=== PATIENT | female | born 1960 | race American Indian/Alaskan Native ===

== ENCOUNTER 2017-09-09 20:04 | Emergency (ER) | payer SELFPAY ==
[2017-09-09] MEDS ORDERED: TYLENOL ONE (21:45)
[2017-09-09] MEDS ORDERED: TYLENOL PO ONE (21:47)
[2017-09-09 22:27] LABS: Hematocrit 41.9 % (30.3-42.9); Hemoglobin 13.6 gm/dl (10.1-14.3); Mean Corpuscular HGB Conc 32 % (30-34); Mean Corpuscular Hemoglobin 27 pg (28-32); Mean Corpuscular Volume 84 fl (79-97); Platelet Count 206 K/mm3 (140-440); Red Blood Count 5.01 M/mm3 (3.65-5.03); Red Cell Distribution Width 14.5 % (13.2-15.2)
[2017-09-09 22:32] LABS: BUN/Creatinine Ratio 18; Blood Urea Nitrogen 14 mg/dL (7-17); Calcium 8.7 mg/dL (8.4-10.2); Hemolysis Index 0
--- NOTE | 2017-09-09 23:04 | XRay Report ---
FINAL REPORT EXAM: XR CHEST ROUTINE 2V HISTORY: fever,cough TECHNIQUE: Two view chest PA and lateral PRIORS: None. FINDINGS: Cardiac and mediastinal contours are unremarkable. No focal pulmonary infiltrate is identified. No pleural fluid collection seen. Pulmonary vasculature is unremarkable. IMPRESSION: Negative two-view chest
--- NOTE | 2017-09-10 18:33 | Emergency Department Report ---
- General Chief Complaint: Fever Stated Complaint: COLD SX, N/V Time Seen by Provider: 09/10/17 18:23 Source: patient Mode of arrival: Ambulatory Limitations: No Limitations - History of Present Illness Initial Comments: This is a 56-year-old female with a past medical history significant for hypertension and CHF who was in her normal state of health until about 3 days ago when she began to have a cough. She then felt weak and had a fever as well. She denies any nausea vomiting diarrhea or chest pain. She states that her godson tested positive for influenza and was treated with liquid Tamiflu. She feels that she may have. At triage her temperature was 102.5. MD Complaint: fever, cough, rhinorrhea, nasal congestion -: Gradual Severity: moderate Consistency: constant Improves With: nothing Worsens With: nothing Context: sick contacts (god son was diagnosed with influenza) Associated Symptoms: fever, chills, myalgias, rhinorrhea, nasal congestion Treatments Prior to Arrival: none - Related Data Previous Rx's Medication Instructions Recorded Last Taken Type Furosemide [Lasix TAB] 40 mg PO QDAY #30 tablet 11/16/15 Unknown Rx ALBUTEROL Inhaler [ProAir HFA 2 puff IH QID PRN #1 inhalation 09/10/17 Unknown Rx Inhaler] Hycodan Cough Syrup 5 ml PO BID PRN #150 ml 09/10/17 Unknown Rx Oseltamivir [Tamiflu] 75 mg PO BID #10 cap 09/10/17 Unknown Rx Allergies Allergy/AdvReac Type Severity Reaction Status Date / Time No Known Allergies Allergy Unverified 11/16/15 12:15 ED Review of Systems ROS: Stated complaint: COLD SX, N/V Other details as noted in HPI Constitutional: chills, fever, malaise, weakness Eyes: as per HPI. denies: eye pain, eye discharge, vision change ENT: as per HPI. denies: ear pain, throat pain Respiratory: no symptoms reported, cough. denies: shortness of breath, wheezing Cardiovascular: as per HPI. denies: chest pain, palpitations Endocrine: no symptoms reported Gastrointestinal: as per HPI, nausea. denies: abdominal pain, diarrhea Genitourinary: denies: urgency, dysuria, discharge Musculoskeletal: as per HPI. denies: back pain, joint swelling, arthralgia Skin: as per HPI. denies: rash, lesions Neurological: denies: headache, weakness, paresthesias Psychiatric: denies: anxiety, depression Hematological/Lymphatic: denies: easy bleeding, easy bruising ED Past Medical Hx - Past Medical History Hx Hypertension: Yes Hx Congestive Heart Failure: Yes - Social History Smoking Status: Unknown if ever smoked Substance Use Type: None - Medications Home Medications: Home Medications Medication Instructions Recorded Confirmed Last Taken Type Furosemide [Lasix TAB] 40 mg PO QDAY #30 tablet 11/16/15 Unknown Rx ALBUTEROL Inhaler [ProAir HFA 2 puff IH QID PRN #1 inhalation 09/10/17 Unknown Rx Inhaler] Hycodan Cough Syrup 5 ml PO BID PRN #150 ml 09/10/17 Unknown Rx Oseltamivir [Tamiflu] 75 mg PO BID #10 cap 09/10/17 Unknown Rx ED Physical Exam - General Limitations: No Limitations General appearance: alert, in no apparent distress - Head Head exam: Present: atraumatic - Eye Eye exam: Present: normal appearance, PERRL, EOMI - ENT ENT exam: Present: normal exam - Neck Neck exam: Present: normal inspection - Respiratory Respiratory exam: Present: normal lung sounds bilaterally, respiratory distress - Cardiovascular Cardiovascular Exam: Present: regular rate, normal rhythm - GI/Abdominal GI/Abdominal exam: Present: soft, normal bowel sounds - Extremities Exam Extremities exam: Present: normal inspection - Back Exam Back exam: Present: normal inspection, full ROM - Neurological Exam Neurological exam: Present: alert, oriented X3 - Psychiatric Psychiatric exam: Present: normal affect, normal mood - Skin Skin exam: Present: warm, dry, intact ED Course Vital Signs 09/09/17 09/09/17 21:40 21:48 Temperature 102.5 F H Pulse Rate 98 H Respiratory 18 18 Rate Blood Pressure 139/84 O2 Sat by Pulse 100 Oximetry - Reevaluation(s) Reevaluation #1: 09/10/17 18:42 At this time I'll go ahead and empirically treat for influenza since she did have a positive contact. Although her tests are negative today and her white count is not elevated and her chest x-ray is negative clinically I do feel that she needs to be treated for influenza at this time. Therefore we'll go ahead and give her some Vicodin milligrams of Tamiflu here in the emergency room, and I'll give her a prescription for Tamiflu for 5 days as well as Hycodan cough syrup and albuterol inhaler. She is to follow-up with her primary care doctor or return here if she has any other concerns or deterioration in her clinical condition. ED Medical Decision Making - Lab Data Result diagrams: 09/09/17 22:00 09/09/17 22:00 Critical care attestation.: If time is entered above; I have spent that time in minutes in the direct care of this critically ill patient, excluding procedure time. ED Disposition Clinical Impression: Influenza Disposition: DC- TO HOME OR SELFCARE Is pt being admited?: No Does the pt Need Aspirin: No Condition: Stable Instructions: Influenza (ED) Additional Instructions: Last, drink plenty of fluids, follow up with her primary care doctor, return as needed, call 911 if you continue having a life-threatening emergency. Take medications as prescribed. Prescriptions: ALBUTEROL Inhaler [ProAir HFA Inhaler] 2 puff IH QID PRN #1 inhalation PRN Reason: Shortness Of Breath Hycodan Cough Syrup 5 ml PO BID PRN #150 ml PRN Reason: Cough Oseltamivir [Tamiflu] 75 mg PO BID #10 cap Referrals: LARS WYLIE MD [Primary Care Provider] - 3-5 Days
[2017-09-10 19:42] VITALS: BP 111/73
== END 2017-09-10 19:41 | disposition home or self-care (01) ==
LOC: ED 20:04
DX: J11.1 Influenza due to unidentified influenza virus with other respiratory manifestations (principal); I11.0 Hypertensive heart disease with heart failure; I50.9 Heart failure, unspecified
CPT/HCPCS: 36415; 71046; 80048; 83880; 85027; 87400; 99284

== ENCOUNTER 2018-01-02 19:11 | Inpatient (IN) | payer OTHER ==
[2018-01-02] MEDS ORDERED: NACL 0.9% 500 ML 500 ML IV ONE (20:22)
[2018-01-02] MEDS ORDERED: TYLENOL PO STA (20:23)
[2018-01-02 20:47] LABS: Basophils # (Auto) 0.1 K/mm3 (0.0-0.1); Basophils % (Auto) 0.8 % (0.0-1.8); Hematocrit 40.6 % (30.3-42.9); Hemoglobin 13.5 gm/dl (10.1-14.3); Lymphocytes # (Auto) 1.3 K/mm3 (1.2-5.4); Lymphocytes % (Auto) 19.8 % (13.4-35.0); Mean Corpuscular HGB Conc 33 % (30-34); Mean Corpuscular Hemoglobin 27 pg (28-32); Mean Corpuscular Volume 82 fl (79-97); Monocytes # (Auto) 0.4 K/mm3 (0.0-0.8); Monocytes % (Auto) 6.7 % (0.0-7.3); Red Blood Count 4.95 M/mm3 (3.65-5.03); Red Cell Distribution Width 14.9 % (13.2-15.2)
[2018-01-02 20:49] LABS: Platelet Count 198 K/mm3 (140-440)
[2018-01-02 21:01] LABS: INR 1.07 (0.87-1.13)
[2018-01-02 21:19] LABS: Alanine Aminotransferase 16 units/L (7-56); Albumin 3.7 g/dL (3.9-5); BUN/Creatinine Ratio 19; Blood Urea Nitrogen 13 mg/dL (7-17); Calcium 9.1 mg/dL (8.4-10.2); Hemolysis Index 27
--- NOTE | 2018-01-02 22:02 | XRay Report ---
FINAL REPORT PROCEDURE: XR CHEST 1V AP TECHNIQUE: Chest radiograph anteroposterior view. CPT 33882 HISTORY: possible Sepsis COMPARISON: September 09, 2017 FINDINGS: Heart: Moderate enlargement. Mediastinum/Vessels: Normal. Lungs/Pleural space: Right perihilar increased density.. Bony thorax: No acute osseous abnormality. Life support devices: None. IMPRESSION: Right perihilar infiltrate or edema. Cardiac enlargement..
[2018-01-03 01:50] LABS: Bacteria,Urine 4+ /HPF (Negative); Bilirubin,Urine NEG (Negative); Blood,Urine SM (Negative); Color,Urine Yellow (Yellow); Mucus,Urine FEW /HPF
[2018-01-03 01:57] LABS: WBC,Urine > 182.0 /HPF (0.0-6.0)
[2018-01-03] MEDS ORDERED: DUONEB *Not for PRN Use IH ONE (03:54)
[2018-01-03] MEDS ORDERED: LASIX IV ONE (05:44)
[2018-01-03] MEDS ORDERED: ROCEPHIN/NS 1 GM/50 ML 1 GM/50 ML BAG IV ONE (05:44)
[2018-01-03] MEDS ORDERED: NITROMIST TL PRN (05:44)
--- NOTE | 2018-01-03 05:50 | Emergency Department Report ---
ED General Adult HPI - General Chief complaint: Fever Stated complaint: VOMITING,COUGH Time Seen by Provider: 01/03/18 03:53 Source: patient Mode of arrival: Ambulatory Limitations: No Limitations - History of Present Illness Initial comments: Shortness of breath increased work of breathing possible pneumonia history of CHF out of her Lasix denies chest pain here for evaluation of possible fever shortness of breath possible pneumonia and CHF out of her Lasix -: Gradual, hour(s), days(s) Radiation: non-radiation Severity scale (0 -10): 6 Consistency: intermittent Associated Symptoms: cough, diaphoresis, fever/chills, malaise, shortness of breath. denies: confusion, chest pain, headaches, loss of appetite, syncope - Related Data Home Medications Medication Instructions Recorded Confirmed Last Taken No Known Home Medications [No 01/03/18 01/03/18 Unknown Reported Home Medications] Allergies Allergy/AdvReac Type Severity Reaction Status Date / Time erythromycin base Allergy Vomiting Verified 01/02/18 20:15 ED Review of Systems ROS: Stated complaint: VOMITING,COUGH Other details as noted in HPI Comment: All other systems reviewed and negative Constitutional: fever, malaise ENT: denies: dental pain, hearing loss, epistaxis Respiratory: cough, orthopnea, shortness of breath Cardiovascular: dyspnea on exertion, orthopnea, edema. denies: chest pain, palpitations, syncope Endocrine: denies: excessive sweating, flushing Gastrointestinal: denies: abdominal pain, nausea, vomiting, diarrhea, constipation, hematemesis, melena, hematochezia Neurological: denies: numbness, paresthesias, confusion, abnormal gait, vertigo Psychiatric: denies: auditory hallucinations, visual hallucinations, homicidal thoughts, suicidal thoughts ED Past Medical Hx - Past Medical History Previous Medical History?: Yes Hx Hypertension: Yes Hx Congestive Heart Failure: Yes - Surgical History Past Surgical History?: No - Social History Smoking Status: Never Smoker - Medications Home Medications: Home Medications Medication Instructions Recorded Confirmed Last Taken Type No Known Home Medications [No 01/03/18 01/03/18 Unknown History Reported Home Medications] ED Physical Exam - General Limitations: No Limitations General appearance: alert, anxious, in distress, other ([id number] respiratory distress respirations of 40 temperature is 98.2 she is nontoxic) - Head Head exam: Present: atraumatic, normocephalic - Eye Eye exam: Present: PERRL, EOMI - ENT ENT exam: Present: normal exam, normal orophraynx - Neck Neck exam: Present: normal inspection. Absent: tenderness, meningismus - Respiratory Respiratory exam: Present: respiratory distress, wheezes, rales, rhonchi, accessory muscle use, other ([id number] respiratory distress temp was 102.7 at triage nurse repeated it now is 98.2). Absent: stridor - Cardiovascular Cardiovascular Exam: Present: tachycardia, normal heart sounds - GI/Abdominal GI/Abdominal exam: Present: soft. Absent: tenderness, guarding, rebound, rigid , mass, pulsatile mass - Extremities Exam Extremities exam: Present: normal capillary refill. Absent: calf tenderness - Back Exam Back exam: Present: normal inspection. Absent: CVA tenderness (R), CVA tenderness (L) - Neurological Exam Neurological exam: Present: alert, oriented X3, CN II-XII intact. Absent: motor sensory deficit - Psychiatric Psychiatric exam: Present: anxious - Skin Skin exam: Absent: petechiae ED Course Vital Signs 01/02/18 01/02/18 01/02/18 19:38 20:20 20:38 Temperature 102.7 F H 102.7 F H Pulse Rate 109 H 110 H Pulse Rate [ Bilateral Lower Lobe] Respiratory 18 18 20 Rate Respiratory Rate [Bilateral Lower Lobe] Blood Pressure 149/97 149/97 Blood Pressure [Right] O2 Sat by Pulse 96 96 Oximetry 01/03/18 01/03/18 01/03/18 01:14 01:23 01:30 Temperature 98.0 F Pulse Rate 94 H 89 Pulse Rate [ Bilateral Lower Lobe] Respiratory 18 36 H Rate Respiratory Rate [Bilateral Lower Lobe] Blood Pressure 132/90 Blood Pressure 131/84 [Right] O2 Sat by Pulse 95 96 96 Oximetry 01/03/18 01/03/18 01/03/18 02:00 02:30 03:00 Temperature Pulse Rate 97 H 101 H 105 H Pulse Rate [ Bilateral Lower Lobe] Respiratory 35 H 29 H 32 H Rate Respiratory Rate [Bilateral Lower Lobe] Blood Pressure 150/96 124/86 154/108 Blood Pressure [Right] O2 Sat by Pulse 94 92 Oximetry 01/03/18 01/03/18 01/03/18 03:30 04:00 04:29 Temperature Pulse Rate 107 H 100 H Pulse Rate [ 104 H Bilateral Lower Lobe] Respiratory 35 H 28 H Rate Respiratory 32 H Rate [Bilateral Lower Lobe] Blood Pressure 141/92 139/100 Blood Pressure [Right] O2 Sat by Pulse 89 97 Oximetry 01/03/18 01/03/18 01/03/18 04:30 04:35 05:00 Temperature Pulse Rate 102 H 102 H Pulse Rate [ 102 H Bilateral Lower Lobe] Respiratory 31 H 28 H Rate Respiratory 24 Rate [Bilateral Lower Lobe] Blood Pressure 142/100 143/94 Blood Pressure [Right] O2 Sat by Pulse 93 93 Oximetry 01/03/18 05:30 Temperature Pulse Rate 99 H Pulse Rate [ Bilateral Lower Lobe] Respiratory 33 H Rate Respiratory Rate [Bilateral Lower Lobe] Blood Pressure 149/93 Blood Pressure [Right] O2 Sat by Pulse 90 Oximetry ED Medical Decision Making - Lab Data Result diagrams: 01/02/18 20:27 01/02/18 20:27 - EKG Data -: EKG Interpreted by Me - EKG Data When compared to previous EKG there are: previous EKG unavailable Interpretation: nonspecific ST-T wave michael, other (sinus tachycardia rate of 1: [address] change possible old anterior wall DC with LVH) - Radiology Data Radiology results: report reviewed - Medical Decision Making She did receive Lasix and nitroglycerin she does appear to have CHF acute exacerbation with possible pneumonia as well, blood cultures were obtained she was treated as a cold sepsis on arrival antibiotics were ordered lactic acid is not elevated she was discussed with Dr. Davis of the hospitalist service for further evaluation of shortness of breath hypoxia lung infiltrate history of CHF and elevated BMP with respiratory distress Critical care attestation.: If time is entered above; I have spent that time in minutes in the direct care of this critically ill patient, excluding procedure time. ED Disposition Clinical Impression: Hypoxia, COPD (chronic obstructive pulmonary disease), Pneumonia, CHF ( congestive heart failure) Disposition: OP ADMIT IP TO THIS HOSP Is pt being admited?: Yes Condition: Stable Instructions: Chronic Obstructive Pulmonary Disease (ED), Bacterial Pneumonia ( ED) Referrals: PRIMARY CARE, [Primary Care Provider] - 3-5 Days Time of Disposition: 05:57
[2018-01-03] MEDS ORDERED: LEVAQUIN 750MG/150ML 750 MG/150 ML BAG IV ONE (05:56)
[2018-01-03] MEDS ORDERED: cefTRIAXone 1 GM in NACL 0.9% 20 ML IV ONE (06:00)
[2018-01-03] MEDS ORDERED: ZOFRAN IV PRN (06:56)
[2018-01-03] MEDS ORDERED: TYLENOL PO PRN (06:56)
--- NOTE | 2018-01-03 09:38 | History and Physical Report ---
History of Present Illness Date of examination: 01/03/18 Date of admission: 01/03/18 06:55 Chief complaint: cough shortness of breath and vomiting - 2 days duration History of present illness: Patient is a 57 y/o lady who had a history of CHF and HTN but has not followed up with his PCP for over a year b/c of she lost her insurance started having cough with shortness of breath for the past 2 days. Had blood in the sutum initially. Vomited 2-3s. No hematemesis. Vomitus was yellowish in colour. Had fever and chills but has resolved. Had orthopnea but no PND. Denies and pedal edma. Present to the Ed on account of these worsening symptoms. BNP was found to be 2267 and CXR showed cardiomegaly as well of right infiltrate. Admissions was therefore requested for further management. Past History Past Medical History: heart failure, hypertension Medications and Allergies Allergies Allergy/AdvReac Type Severity Reaction Status Date / Time erythromycin base AdvReac Vomiting Verified 01/03/18 11:02 Home Medications Medication Instructions Recorded Confirmed Last Taken Type No Known Home Medications [No 01/03/18 01/03/18 Unknown History Reported Home Medications] Active Meds: Active Medications Acetaminophen (Tylenol) 650 mg PO Q4H PRN PRN Reason: Non Cardiac Pain or Temp>100.5 Aspirin (Baby Aspirin) 81 mg PO QDAY TANO Carvedilol (Coreg) 6.25 mg PO BID TANO Enoxaparin Sodium (Lovenox) 40 mg SUB-Q QDAY@2200 TANO Furosemide (Lasix) 40 mg PO QDAY TANO Azithromycin 500 mg/ Sodium (Chloride) 250 mls @ 250 mls/hr IV Q24HR TANO; Protocol Ceftriaxone Sodium (Rocephin/Ns 1 Gm/50 Ml) 1 gm in 50 mls @ 100 mls/hr IV Q24HR TANO; Protocol Dextrose/Sodium Chloride (D5/0.45ns) 1,000 mls @ 75 mls/hr IV DIRECT TANO Lisinopril (Zestril) 10 mg PO QDAY TANO Nitroglycerin (Nitromist) 1 spray TL Q5M PRN PRN Reason: Chest Pain Ondansetron HCl (Zofran) 4 mg IV Q4H PRN PRN Reason: N/V IF NPO AND NO IV ACCESS Review of Systems Constitutional: fever, chills, anorexia, no weight gain Ears, nose, mouth and throat: no ear pain, no ear discharge, no tinnitis Breasts: deferred Cardiovascular: orthopnea, shortness of breath, no chest pain, no palpitations, no edema, no syncope Respiratory: cough, cough with sputum, hemoptysis Gastrointestinal: nausea, vomiting, no abdominal pain, no diarrhea, no constipation, no change in bowel habits, no hematemesis Genitourinary Female: no flank pain, no menorrhagia, no dysuria, no urinary frequency, no urgency Musculoskeletal: no neck stiffness, no neck pain, no shooting arm pain, no arm numbness/tingling Integumentary: no rash, no pruritis, no redness Neurological: no head injury, no transient paralysis Exam - Constitutional Vitals: Temp Pulse Resp BP Pulse Ox 97.6 F 63 20 121/49 94 01/03/18 08:43 01/03/18 08:43 01/03/18 08:43 01/03/18 08:43 01/03/18 08:43 General appearance: Present: mild distress, well-nourished - EENT Eyes: Present: PERRL ENT: hearing intact, clear oral mucosa - Neck Neck: Present: supple, normal ROM - Respiratory Respiratory effort: normal Respiratory: bilateral: diminished, rales - Cardiovascular Heart Sounds: Present: S1 & S2. Absent: rub, click - Extremities Extremities: pulses symmetrical, No edema Peripheral Pulses: within normal limits - Abdominal General gastrointestinal: Present: soft, non-tender, non-distended, normal bowel sounds - Integumentary Integumentary: Present: clear, warm, dry - Musculoskeletal Musculoskeletal: gait normal, strength equal bilaterally - Psychiatric Psychiatric: appropriate mood/affect, intact judgment & insight - Neurologic Neurologic: CNII-XII intact, moves all extremities Results - Labs CBC & Chem 7: 01/02/18 20:27 01/02/18 20:27 Labs: Abnormal lab results 01/02/18 01/02/18 01/02/18 Range/Units 20:27 20:27 20:27 MCH 27 L (28-32) pg Seg Neutrophils % 72.7 H (40.0-70.0) % VBG pH 7.464 H (7.320-7.420) Sodium 135 L (137-145) mmol/L Chloride 97.5 L (98-107) mmol/L Glucose 154 H (65-100) mg/dL NT-Pro-B Natriuret Pep 2211 H (0-900) pg/mL Total Protein 9.3 H (6.3-8.2) g/dL Albumin 3.7 L (3.9-5) g/dL Urine WBC (Auto) (0.0-6.0) /HPF 01/02/18 01/03/18 Range/Units Unknown 04:31 MCH (28-32) pg Seg Neutrophils % (40.0-70.0) % VBG pH (7.320-7.420) Sodium (137-145) mmol/L Chloride (98-107) mmol/L Glucose (65-100) mg/dL NT-Pro-B Natriuret Pep 2267 H (0-900) pg/mL Total Protein (6.3-8.2) g/dL Albumin (3.9-5) g/dL Urine WBC (Auto) > 182.0 H (0.0-6.0) /HPF - Imaging and Cardiology Chest x-ray: report reviewed Assessment and Plan Assessment acute on chronic combined systolic and diastolic Heart failure Pulm. Hypertension Pneumonia UTI HTN Plan admit to Tele [facility] Is and Os, Daily edu, 2gm Na diet Cardiology consult Diurersis, ACEI BB, ECHO Blood XC and sputum Cx CTA b/c hemotysis Iv Cefriaxone and Azythromycin optimize BP control Urine Cx DVT PPx with lovenox
[2018-01-03] MEDS ORDERED: ROCEPHIN/NS 1 GM/50 ML 1 GM/50 ML BAG IV SCH (10:00)
[2018-01-03] MEDS ORDERED: D5/0.45NS 1,000 ML IV SCH (10:00)
[2018-01-03] MEDS: COREG PO SCH ×2 (10:10→23:00)
[2018-01-03] MEDS: LASIX PO SCH (10:10)
[2018-01-03] MEDS: BABY ASPIRIN PO SCH (10:10)
[2018-01-03] MEDS: ZESTRIL PO SCH (10:10)
[2018-01-03] MEDS: LOVENOX SUB-Q SCH (22:58)
[2018-01-03] MEDS: ROBITUSSIN PO PRN (23:58)
[2018-01-04] MEDS: LASIX PO SCH (05:42)
[2018-01-04] MEDS: ROBITUSSIN PO PRN ×2 (05:44→22:03)
[2018-01-04 05:49] LABS: Basophils # (Auto) 0.1 K/mm3 (0.0-0.1); Basophils % (Auto) 1.3 % (0.0-1.8); Eosinophils % (Auto) 0.6 % (0.0-4.3); Hematocrit 37.8 % (30.3-42.9); Hemoglobin 12.4 gm/dl (10.1-14.3); Lymphocytes % (Auto) 38.8 % (13.4-35.0); Mean Corpuscular HGB Conc 33 % (30-34); Mean Corpuscular Hemoglobin 27 pg (28-32); Mean Corpuscular Volume 82 fl (79-97); Monocytes # (Auto) 0.4 K/mm3 (0.0-0.8); Monocytes % (Auto) 8.3 % (0.0-7.3); Platelet Count 179 K/mm3 (140-440); Red Blood Count 4.59 M/mm3 (3.65-5.03)
[2018-01-04 05:58] LABS: INR 1.16 (0.87-1.13)
[2018-01-04 06:11] LABS: Alanine Aminotransferase 16 units/L (7-56); Albumin 3.3 g/dL (3.9-5); BUN/Creatinine Ratio 26; Blood Urea Nitrogen 18 mg/dL (7-17); Calcium 8.4 mg/dL (8.4-10.2); Hemolysis Index 0
[2018-01-04] MEDS: ZITHROMAX 500 MG in NACL 0.9% 250ML 250 ML IV SCH ×2 (08:01→09:49)
[2018-01-04] MEDS: ZESTRIL PO SCH (09:48)
[2018-01-04] MEDS: COREG PO SCH ×2 (09:48→21:56)
[2018-01-04] MEDS: BABY ASPIRIN PO SCH (09:48)
[2018-01-04] MEDS: cefTRIAXone 1 GM in NACL 0.9% 20 ML IV SCH (09:49)
--- NOTE | 2018-01-04 10:40 | Progress Note ---
Assessment and Plan Assessment acute on chronic combined systolic and diastolic Heart failure Pulm. Hypertension Pneumonia UTI HTN Plan Strick Is and Os, Daily weight, 2gm Na diet Echo showed 20-25% ejection fraction with restrictive diastolic filling Cardiology following Continue Diurersis, ACEI BB, Blood Cx and sputum Cx - no growth so far Srine Cx grew Gram neg. rods CTA b/c hemoptysis Iv Cefriaxone and Azythromycin optimize BP control Urine Cx DVT PPx with lovenox Subjective Date of service: 01/04/18 Principal diagnosis: combined systolic congestive heart failure, pulmonary hypertension, pneumon Interval history: Patient seen and examined. Still Having shortness of breath Objective - Exam Narrative Exam: Constitutional: Well-nourished well-developed. In no distress Head: Normocephalic atraumatic Eyes: Pupils are equal round and reactive to light Nose: No enlarged turbinates, no septal deviation. Mouth: Moist mucous membranes. Neck: Supple no thyromegaly. No bruit. No JVD Heart: Regular rate and rhythm, S1-S2 abnormal. No rubs murmurs or gallop Lungs: Decreased breath sounds bilaterally. Has basal crackles Abdomen: Soft, nontender. Bowel sound are present. Extremities: No edema no cyanosis and no clubbing. Neuro: Alert oriented Oriented x3. No focal sensory or motor deficit. Skin: No rashes no hyperemic spots Psychiatry: Euthymic. Calm. - Constitutional Vitals: Vital Signs - 12hr 01/03/18 01/04/18 01/04/18 23:00 00:42 05:20 Temperature 98.4 F 98.4 F Pulse Rate 79 78 77 Respiratory 20 22 Rate Blood Pressure 127/83 117/68 110/79 O2 Sat by Pulse 91 89 Oximetry 01/04/18 07:45 Temperature 98.1 F Pulse Rate 79 Respiratory 20 Rate Blood Pressure 108/72 O2 Sat by Pulse 92 Oximetry - Labs CBC & Chem 7: 01/04/18 05:30 01/04/18 05:30 Labs: Abnormal lab results 01/04/18 01/04/18 01/04/18 Range/Units 05:30 05:30 05:30 MCH 27 L (28-32) pg Lymph % (Auto) 38.8 H (13.4-35.0) % [place] % (Auto) 8.3 H (0.0-7.3) % PT 15.4 H (12.2-14.9) Sec. INR 1.16 H (0.87-1.13) Sodium 135 L (137-145) mmol/L Chloride 96.1 L (98-107) mmol/L BUN 18 H (7-17) mg/dL Glucose 163 H (65-100) mg/dL Albumin 3.3 L (3.9-5) g/dL
[2018-01-04] MEDS ORDERED: NACL 0.9% 250ML 250 ML ONE (11:35)
--- NOTE | 2018-01-04 11:54 | Consultation ---
History of Present Illness Consult date: 01/04/18 Requesting physician: MIGUEL INFANTE Consult reason: congestive heart failure History of present illness: The patient presented to the hospital with complaints of intermittent bloody material as well as hemoptysis. She claims that her content appears like phlegm with specks of blood. She denies chest pain or shortness of breath. There is no orthopnea. No fever or chills. Chest X-ray revealed pulmonary vascular congestion with probable right-sided infiltrate. Echocardiogram performed yesterday revealed an ejection fraction of 20-25%. There is a restrictive pattern of diastolic LV dysfunction. The right ventricle appears dilated with normal systolic function. RVSP = 77 mmHg. On the monitor this morning, she had a 7-beat run of nonsustained ventricular tachycardia. Past History Past Medical History: diabetes, heart failure, hypertension, hyperlipidemia Past Surgical History: No surgical history Social history: (with 2 children). denies: smoking, alcohol abuse Family history: denies: CAD Medications and Allergies Allergies Allergy/AdvReac Type Severity Reaction Status Date / Time erythromycin base AdvReac Vomiting Verified 01/03/18 11:02 Home Medications Medication Instructions Recorded Confirmed Last Taken Type No Known Home Medications [No 01/03/18 01/03/18 Unknown History Reported Home Medications] Active Meds: Active Medications Acetaminophen (Tylenol) 650 mg PO Q4H PRN PRN Reason: Non Cardiac Pain or Temp>100.5 Aspirin (Baby Aspirin) 81 mg PO QDAY [facility] Last Admin: 01/04/18 09:48 Dose: 81 mg Carvedilol (Coreg) 6.25 mg PO BID [facility] Last Admin: 01/04/18 09:48 Dose: 6.25 mg Enoxaparin Sodium (Lovenox) 40 mg SUB-Q QDAY@2200 [facility] Last Admin: 01/03/18 22:58 Dose: 40 mg Furosemide (Lasix) 40 mg PO DAILY@0600 [facility] Last Admin: 01/04/18 05:42 Dose: 40 mg Guaifenesin (Robitussin) 200 mg PO Q4H PRN PRN Reason: Cough Last Admin: 01/04/18 05:44 Dose: 200 mg Azithromycin 500 mg/ Sodium (Chloride) 250 mls @ 250 mls/hr IV Q24HR [facility]; Protocol Last Admin: 01/04/18 09:49 Dose: 250 mls/hr Dextrose/Sodium Chloride (D5/0.45ns) 1,000 mls @ 75 mls/hr IV DIRECT [facility] Ceftriaxone Sodium 1 gm/ (Sodium Chloride) 20 mls @ 2 mls/min IV Q24HR [facility] Last Admin: 01/04/18 09:49 Dose: 2 mls/min Lisinopril (Zestril) 10 mg PO QDAY [facility] Last Admin: 01/04/18 09:48 Dose: 10 mg Nitroglycerin (Nitromist) 1 spray TL Q5M PRN PRN Reason: Chest Pain Ondansetron HCl (Zofran) 4 mg IV Q4H PRN PRN Reason: N/V IF NPO AND NO IV ACCESS Review of Systems Constitutional: no fever, no chills Ears, nose, mouth and throat: no ear pain, no ear discharge, no sore throat Cardiovascular: no chest pain, no orthopnea, no palpitations, no shortness of breath, no dyspnea on exertion Respiratory: cough with sputum, hemoptysis, no shortness of breath Gastrointestinal: nausea, vomiting, hematemesis, no abdominal pain, no diarrhea , no constipation Genitourinary Female: no dysuria, no urinary frequency Rectal: no pain, no bleeding Musculoskeletal: no neck stiffness, no neck pain, no myalgias Integumentary: no rash, no pruritis Neurological: no weakness, no parathesias, no headaches Endocrine: no cold intolerance, no heat intolerance Hematologic/Lymphatic: no easy bruising, no easy bleeding Allergic/Immunologic: no urticaria, no wheezing Physical Examination Vital Signs Vital Signs 01/04/18 01/04/18 05:20 07:45 Temperature 98.4 F 98.1 F Pulse Rate 77 79 Respiratory 22 20 Rate Blood Pressure 110/79 108/72 O2 Sat by Pulse 89 92 Oximetry General appearance: no acute distress HEENT: Positive: EOMI, Mucus Membranes Moist Neck: Positive: neck supple, trachea midline Cardiac: Positive: Reg Rate and Rhythm, S1/S2 Lungs: Positive: clear to auscultation Neuro: Positive: Grossly Intact Abdomen: Positive: Soft, Active Bowel Sounds. Negative: Tender Skin: Positive: Clear. Negative: Rash Musculoskeletal: Normal Range of Motion Extremities: Present: normal. Absent: edema Results 01/04/18 05:30 05/23/18 05:30 Cardiac Enzymes 01/04/18 Range/Units 05:30 AST 33 (5-40) units/L Coagulation 01/04/18 Range/Units 05:30 PT 15.4 H (12.2-14.9) Sec. INR 1.16 H (0.87-1.13) CBC 01/04/18 Range/Units 05:30 WBC 5.2 (4.5-11.0) K/mm3 RBC 4.59 (3.65-5.03) M/mm3 Hgb 12.4 (10.1-14.3) gm/dl Hct 37.8 (30.3-42.9) % Plt Count 179 (140-440) K/mm3 Lymph # 2.0 (1.2-5.4) K/mm3 [place] # 0.4 (0.0-0.8) K/mm3 Eos # 0.0 (0.0-0.4) K/mm3 Baso # 0.1 (0.0-0.1) K/mm3 Comprehensive Metabolic Panel 01/04/18 Range/Units 05:30 Sodium 135 L (137-145) mmol/L Potassium 3.6 (3.6-5.0) mmol/L Chloride 96.1 L (98-107) mmol/L Carbon Dioxide 27 (22-30) mmol/L BUN 18 H (7-17) mg/dL Creatinine 0.7 (0.7-1.2) mg/dL Glucose 163 H (65-100) mg/dL Calcium 8.4 (8.4-10.2) mg/dL AST 33 (5-40) units/L ALT 16 (7-56) units/L Alkaline Phosphatase 102 (35-129) units/L Total Protein 8.0 (6.3-8.2) g/dL Albumin 3.3 L (3.9-5) g/dL - Imaging and Cardiology EKG: image reviewed EKG interpretations - Telemetry EKG Rhythm: Sinus Tachycardia - EKG Sinus rhythms and dysrhythmias: sinus tachycardia Ventricular dysrhythmias: non-sustained ventricular AV and intraventricular conduction: left anterior fascicular Myocardial infarction: septal [place] (old age or ind Assessment and Plan I agree with her current regimen. The findings on her cardiac tests so far are significantly out of proportion to her presenting symptoms. Obtain d-dimer. I have explained to her that she will benefit from left and right heart catheterization. - Patient Problems (1) Acute HFrEF (heart failure with reduced ejection fraction) Current Visit: Yes Status: Acute (2) Cardiomyopathy Current Visit: Yes Status: Acute (3) Nonsustained ventricular tachycardia Current Visit: Yes Status: Acute (4) Moderate to severe pulmonary hypertension Current Visit: Yes Status: Acute (5) Hematemesis Current Visit: Yes Status: Acute Qualifiers: Nausea presence: with nausea Qualified Code(s): K92.0 - Hematemesis (6) Hemoptysis Current Visit: Yes Status: Acute (7) Hypertension Current Visit: Yes Status: Chronic Qualifiers: Hypertension type: essential hypertension Qualified Code(s): I10 - Essential (primary) hypertension (8) Diabetes mellitus Current Visit: Yes Status: Chronic Qualifiers: Diabetes mellitus type: type 2
[2018-01-04] MEDS ORDERED: NACL 0.9% 250ML 250 ML IV ONE (12:26)
[2018-01-04] MEDS ORDERED: NACL 0.9% 500 ML 500 ML IV SCH (13:00)
[2018-01-04 14:11] LABS: Creatine Kinase MB 1.6 ng/mL (0.0-4.0)
--- NOTE | 2018-01-04 14:43 | Cat Scan Report ---
FINAL REPORT EXAM: CT ANGIO CHEST HISTORY: shortnessiof breath COMPARISON: Chest radiograph performed on 01/02/2018 TECHNIQUE: Multiple contiguous axial images were obtained from the thoracic inlet to the upper abdomen after administration of IV contrast. Reformatted sagittal and coronal images were available for review. FINDINGS: Medical devices: None. Thyroid: Normal. Lymph nodes: No significant mediastinal, hilar, or axillary lymphadenopathy. Vasculature: Normal caliber of the pulmonary artery. No filling defect to suggest pulmonary embolism. Normal caliber of the thoracic aorta. Conventional branching pattern of the aortic arch. Heart: Mild cardiomegaly. There is some reflux of contrast into the inferior vena cava and hepatic veins. Other mediastinal structures: Normal. Lung parenchyma: Peribronchovascular ground-glass opacities right greater than left. There are also peribronchovascular ground-glass nodules throughout both lungs. Airways: Patent. No bronchiectasis. Pleura: No pleural effusion or pneumothorax. Chest wall and spine: No suspicious osseous lesions. Upper Abdomen: Normal. IMPRESSION: Peribronchovascular ground-glass opacities and nodules, right slightly greater than the left. Along with findings of cardiomegaly and reflux of contrast into the hepatic veins and inferior vena cava, findings likely represent cardiogenic pulmonary edema. Recommend clinical correlation. Differential diagnosis includes hypersensitivity pneumonitis and drug reaction.
--- NOTE | 2018-01-04 18:46 | Event Note ---
Date: 01/04/18 Pt suddenly became lethargic this morning after iv Azithromycin per pt's nurse became lightly hypoxic. NS 250 mg bolus given with CTA of the chest ordered. Result of CTA showed ground glass appearance with cardiogenic edema and pneumonitis likely from drug reaction Will d/c Azithromycine and Commence Levaquin more so as UA showed Gram neg rods
[2018-01-04] MEDS: LOVENOX SUB-Q SCH (21:57)
[2018-01-05 05:46] LABS: Basophils % (Auto) 0.4 % (0.0-1.8); Eosinophils # (Auto) 0.1 K/mm3 (0.0-0.4); Eosinophils % (Auto) 1.2 % (0.0-4.3); Hematocrit 36.6 % (30.3-42.9); Hemoglobin 12.1 gm/dl (10.1-14.3); Lymphocytes # (Auto) 1.8 K/mm3 (1.2-5.4); Lymphocytes % (Auto) 32.9 % (13.4-35.0); Mean Corpuscular HGB Conc 33 % (30-34); Mean Corpuscular Hemoglobin 27 pg (28-32); Mean Corpuscular Volume 82 fl (79-97); Monocytes # (Auto) 0.5 K/mm3 (0.0-0.8); Monocytes % (Auto) 9.2 % (0.0-7.3); Platelet Count 181 K/mm3 (140-440); Red Blood Count 4.47 M/mm3 (3.65-5.03); Red Cell Distribution Width 14.6 % (13.2-15.2)
[2018-01-05] MEDS: LASIX PO SCH (05:48)
[2018-01-05 05:56] LABS: INR 1.05 (0.87-1.13)
[2018-01-05 06:51] LABS: Alanine Aminotransferase 16 units/L (7-56); Albumin 3.3 g/dL (3.9-5); BUN/Creatinine Ratio 27; Blood Urea Nitrogen 16 mg/dL (7-17); Calcium 8.2 mg/dL (8.4-10.2); Hemolysis Index 0
[2018-01-05] MEDS ORDERED: HALFPRIN EC PO ONE ×2 (07:59→08:02)
[2018-01-05] MEDS ORDERED: LASIX IV ONE (08:48)
[2018-01-05] MEDS ORDERED: TESSALON PERLES PO ONE (08:50)
[2018-01-05] MEDS ORDERED: HEPARIN 10,000 UNITS/10 ML ONE ×2 (08:53→08:55)
[2018-01-05] MEDS ORDERED: CALAN ONE (08:53)
[2018-01-05] MEDS ORDERED: HEPARIN/NS 5000 UNIT/500ML(CATH LAB) 1,000 ML IR ONE (08:53)
[2018-01-05] MEDS ORDERED: XYLOCAINE 2% INFILTRATI ONE ×2 (08:53→11:02)
[2018-01-05] MEDS ORDERED: LASIX ONE (08:54)
[2018-01-05] MEDS ORDERED: NITROGLYCERIN SYRINGE 3 ML ONE (08:54)
[2018-01-05] MEDS ORDERED: SUBLIMAZE ONE (08:55)
[2018-01-05] MEDS ORDERED: VERSED ONE (08:55)
[2018-01-05] MEDS ORDERED: DUONEB *Not for PRN Use IH ONE (09:05)
[2018-01-05] MEDS ORDERED: DUONEB *Not for PRN Use IH NR (09:06)
[2018-01-05] MEDS: ROBITUSSIN PO PRN (09:09)
--- NOTE | 2018-01-05 09:19 | Progress Note ---
Assessment and Plan Patient is a 57 y/o lady who had a history of CHF and HTN but has not followed up with his PCP for over a year b/c of she lost her insurance started having cough with shortness of breath for the past 2 days. Had blood in the sutum initially. Vomited 2-3s. No hematemesis. Vomitus was yellowish in colour. Had fever and chills but has resolved. Had orthopnea but no PND. Denies and pedal edma. Present to the Ed on account of these worsening symptoms. BNP was found to be 2267 and CXR showed cardiomegaly as well of right infiltrate. Admissions was therefore requested for further management. On 01/04, Pt suddenly became lethargic this morning after iv Azithromycin per pt' s nurse became lightly hypoxic. NS 250 mg bolus given with CTA of the chest ordered. Result of CTA showed ground glass appearance with cardiogenic edema and pneumonitis likely from drug reaction Will d/c Azithromycine and Commence Levaquin more so as UA showed E. coli Assessment Acute on chronic combined systolic and diastolic Heart failure Pulm. Hypertension Pneumonia UTI HTN Plan Strick Is and Os, Daily weight, 2gm Na diet Echo showed 20-25% ejection fraction with restrictive diastolic filling Cardiology following Continue Diurersis, ACEI BB, Blood Cx and sputum Cx - no growth so far Urine Cx E. coli CTA showed ground glass appearance with cardiogenic edema Iv Ceftriaxone continued, but d/c azithromycin because of possible drug reaction and commenced patient on IV Levaquin BP controlled Urine Cx showed E. coli DVT PPx with lovenox Cardiac cath done Subjective Date of service: 01/05/18 Principal diagnosis: combined systolic congestive heart failure, pulmonary hypertension, pneumon Interval history: Patient seen and examined. Still having shortness of breath. Rediscussed limiting fluid intake to < 1.5 L daily. Objective - Exam Narrative Exam: Constitutional: Well-nourished well-developed. In no distress Head: Normocephalic atraumatic Eyes: Pupils are equal round and reactive to light Nose: No enlarged turbinates, no septal deviation. Mouth: Moist mucous membranes. Neck: Supple no thyromegaly. No bruit. No JVD Heart: Regular rate and rhythm, S1-S2 abnormal. No rubs murmurs or gallop Lungs: Decreased breath sounds bilaterally. Has basal crackles. Abdomen: Soft, nontender. Bowel sound are present. Extremities: No edema no cyanosis and no clubbing. Neuro: Alert oriented Oriented x3. No focal sensory or motor deficit. Skin: No rashes no hyperemic spots Psychiatry: Euthymic. Calm. - Constitutional Vitals: Vital Signs - 12hr 01/04/18 01/05/18 01/05/18 21:56 00:05 00:27 Temperature Pulse Rate 59 L 88 Pulse Rate [ Bilateral Lower Lobe] Pulse Rate [ 70 Right Radial] Respiratory 18 Rate Respiratory Rate [Bilateral Lower Lobe] Blood Pressure 102/61 118/77 Blood Pressure [Right] O2 Sat by Pulse 93 Oximetry 01/05/18 01/05/18 01/05/18 00:46 04:21 05:23 Temperature 97.8 F 98.4 F Pulse Rate 88 73 72 Pulse Rate [ Bilateral Lower Lobe] Pulse Rate [ Right Radial] Respiratory 18 18 Rate Respiratory Rate [Bilateral Lower Lobe] Blood Pressure 110/73 Blood Pressure 118/77 110/73 [Right] O2 Sat by Pulse 92 93 95 Oximetry 01/05/18 01/05/18 01/05/18 07:42 08:04 08:12 Temperature 98.3 F 97.5 F L Pulse Rate 71 74 Pulse Rate [ Bilateral Lower Lobe] Pulse Rate [ Right Radial] Respiratory 20 18 Rate Respiratory Rate [Bilateral Lower Lobe] Blood Pressure 119/70 Blood Pressure 113/77 [Right] O2 Sat by Pulse 95 96 96 Oximetry 01/05/18 09:13 Temperature Pulse Rate Pulse Rate [ 13 L Bilateral Lower Lobe] Pulse Rate [ Right Radial] Respiratory Rate Respiratory 18 Rate [Bilateral Lower Lobe] Blood Pressure Blood Pressure [Right] O2 Sat by Pulse Oximetry - Labs CBC & Chem 7: 01/05/18 04:57 01/05/18 04:57 Labs: Abnormal lab results 01/04/18 01/05/18 01/05/18 Range/Units 13:02 04:57 04:57 MCH 27 L (28-32) pg [place] % (Auto) 9.2 H (0.0-7.3) % Chloride 96.9 L (98-107) mmol/L Creatinine 0.6 L (0.7-1.2) mg/dL Glucose 157 H (65-100) mg/dL Calcium 8.2 L (8.4-10.2) mg/dL Total Creatine Kinase 449 H (30-135) units/L Albumin 3.3 L (3.9-5) g/dL
[2018-01-05] MEDS ORDERED: ZITHROMAX PO SCH (10:00)
[2018-01-05] MEDS ORDERED: NACL 0.9% 500 ML 500 ML ONE (10:33)
[2018-01-05] MEDS ORDERED: HEPARIN 10,000 UNITS/10 ML 5,000 UNIT in NACL 0.9% 500 ML 500 ML IR ONE (10:45)
[2018-01-05] MEDS ORDERED: SUBLIMAZE IV ONE (10:55)
[2018-01-05] MEDS ORDERED: VERSED IV ONE (10:55)
[2018-01-05] MEDS ORDERED: NITROGLYCERIN SYRINGE UD ONE (11:04)
[2018-01-05] MEDS ORDERED: HEPARIN 10,000 UNITS/10 ML IV ONE (11:04)
[2018-01-05] MEDS ORDERED: CALAN IV ONE (11:04)
--- NOTE | 2018-01-05 11:31 | Progress Note ---
Assessment and Plan acute respiratory failure acute systolic heart failure pulm htn htn rec: add aldactone cont lasix, jerri and coreg and followup in clinic next week. discuss with pcp and patient. Subjective Date of service: 01/05/18 Principal diagnosis: combined systolic congestive heart failure, pulmonary hypertension, pneumon Interval history: pt having cough and able to ly flat Objective Vital Signs Temp Pulse Pulse Pulse Resp Resp BP 01/05/18 09:22 68 18 01/05/18 09:13 13 L 18 01/05/18 08:12 01/05/18 08:04 97.5 F L 74 18 01/05/18 07:42 98.3 F 71 20 119/70 01/05/18 05:23 98.4 F 72 18 01/05/18 04:21 73 110/73 01/05/18 00:46 97.8 F 88 18 01/05/18 00:27 70 18 01/05/18 00:05 88 118/77 01/04/18 21:56 59 L 102/61 01/04/18 20:35 70 01/04/18 19:57 97.6 F 59 L 20 01/04/18 19:50 01/04/18 19:21 61 102/61 01/04/18 15:26 98.2 F 64 20 101/60 01/04/18 12:51 01/04/18 12:03 66 92/63 BP Pulse Ox 01/05/18 09:22 01/05/18 09:13 01/05/18 08:12 96 01/05/18 08:04 113/77 96 01/05/18 07:42 95 01/05/18 05:23 110/73 95 01/05/18 04:21 93 01/05/18 00:46 118/77 92 01/05/18 00:27 01/05/18 00:05 93 01/04/18 21:56 01/04/18 20:35 01/04/18 19:57 102/61 96 01/04/18 19:50 97 01/04/18 19:21 92 01/04/18 15:26 92 01/04/18 12:51 96 01/04/18 12:03 86 - Physical Examination General: No Apparent Distress HEENT: Positive: EOMI, Mucus Membranes Moist Neck: Positive: neck supple, trachea midline Cardiac: Positive: Regular Rate Lungs: Positive: Decreased Breath Sounds Neuro: Positive: Grossly Intact Abdomen: Positive: Soft, Active Bowel Sounds. Negative: Tender Skin: Positive: Clear. Negative: Rash Musculoskeletal: Normal Range of Motion Extremities: Present: normal. Absent: edema - Labs and Meds Cardiac Enzymes 01/04/18 01/05/18 Range/Units 13:02 04:57 AST 28 (5-40) units/L CK-MB (CK-2) 1.6 (0.0-4.0) ng/mL Coagulation 01/05/18 Range/Units 04:57 PT 14.2 (12.2-14.9) Sec. INR 1.05 (0.87-1.13) CBC 01/05/18 Range/Units 04:57 WBC 5.4 (4.5-11.0) K/mm3 RBC 4.47 (3.65-5.03) M/mm3 Hgb 12.1 (10.1-14.3) gm/dl Hct 36.6 (30.3-42.9) % Plt Count 181 (140-440) K/mm3 Lymph # 1.8 (1.2-5.4) K/mm3 [place] # 0.5 (0.0-0.8) K/mm3 Eos # 0.1 (0.0-0.4) K/mm3 Baso # 0.0 (0.0-0.1) K/mm3 Comprehensive Metabolic Panel 01/05/18 Range/Units 04:57 Sodium 138 (137-145) mmol/L Potassium 3.6 (3.6-5.0) mmol/L Chloride 96.9 L (98-107) mmol/L Carbon Dioxide 25 (22-30) mmol/L BUN 16 (7-17) mg/dL Creatinine 0.6 L (0.7-1.2) mg/dL Glucose 157 H (65-100) mg/dL Calcium 8.2 L (8.4-10.2) mg/dL AST 28 (5-40) units/L ALT 16 (7-56) units/L Alkaline Phosphatase 101 (35-129) units/L Total Protein 8.0 (6.3-8.2) g/dL Albumin 3.3 L (3.9-5) g/dL - Imaging and Cardiology EKG: image reviewed Cardiac cath: report reviewed (pulm htn and normal coronaries and severe lv dsyfunction ) - Telemetry EKG Rhythm: Sinus Rhythm - EKG Sinus rhythms and dysrhythmias: sinus tachycardia Ventricular dysrhythmias: non-sustained ventricular AV and intraventricular conduction: left anterior fascicular Myocardial infarction: septal [place] (old age or ind
--- NOTE | 2018-01-05 15:09 | Consultation ---
History of Present Illness Consult date: 01/05/18 Requesting physician: MIGUEL INFANTE Reason for consult: hypoxemia History of present illness: 57 y/o female with severe systolic heart failure admitted with acute respiratory failure. Per patient and ED notes, ran out of lasix therapy. Was started on abx and per report, became acutely ill after administration of macrolide abx therapy. Unsure if the allergy listed above was just placed or not. Had a CTA angio that was negative for PE but showed diffuse ground glass opacities with worsening in the right upper lobe region. Pulmonary consulted for this. Past History Past Medical History: diabetes, heart failure, hypertension, hyperlipidemia Past Surgical History: No surgical history Social history: (with 2 children). denies: smoking, alcohol abuse Family history: denies: CAD Medications and Allergies Allergies Allergy/AdvReac Type Severity Reaction Status Date / Time erythromycin base AdvReac Vomiting Verified 01/03/18 11:02 Home Medications Medication Instructions Recorded Confirmed Last Taken Type No Known Home Medications [No 01/03/18 01/03/18 Unknown History Reported Home Medications] Active Meds: Active Medications Acetaminophen (Tylenol) 650 mg PO Q4H PRN PRN Reason: Non Cardiac Pain or Temp>100.5 Aspirin (Baby Aspirin) 81 mg PO QDAY [facility]S [facility] 234 BEDS AT [facility] Last Admin: 01/04/18 09:48 Dose: 81 mg Carvedilol (Coreg) 6.25 mg PO BID COUNTS [facility]CLUDE 234 BEDS AT [facility] Last Admin: 01/04/18 21:56 Dose: Not Given Enoxaparin Sodium (Lovenox) 40 mg SUB-Q QDAY@2200 COUNTS [facility]CLUDE 234 BEDS AT [facility] Last Admin: 01/04/18 21:57 Dose: 40 mg Furosemide (Lasix) 40 mg PO DAILY@0600 COUNTS INCLUDE 234 BEDS AT [facility] Last Admin: 01/05/18 05:48 Dose: Not Given Guaifenesin (Robitussin) 200 mg PO Q4H PRN PRN Reason: Cough Last Admin: 01/05/18 09:09 Dose: 200 mg Dextrose/Sodium Chloride (D5/0.45ns) 1,000 mls @ 75 mls/hr IV DIRECT COUNTS INCLUDE 234 BEDS AT THE [facility] Ceftriaxone Sodium 1 gm/ (Sodium Chloride) 20 mls @ 2 mls/min IV Q24HR COUNTS INCLUDE 234 BEDS AT THE [facility] Last Admin: 01/04/18 09:49 Dose: 2 mls/min Lisinopril (Zestril) 10 mg PO QDAY COUNTS INCLUDE 234 BEDS AT [facility] Last Admin: 01/04/18 09:48 Dose: 10 mg Nitroglycerin (Nitromist) 1 spray TL Q5M PRN PRN Reason: Chest Pain Ondansetron HCl (Zofran) 4 mg IV Q4H PRN PRN Reason: N/V IF NPO AND NO IV ACCESS Spironolactone (Aldactone) 25 mg PO QDAY COUNTS INCLUDE 234 BEDS AT THE [facility] Review of Systems All systems: negative Physical Examination Vital signs: Vital Signs Pulse BP Pulse Ox 111 H 149/97 95 01/02/18 19:37 01/02/18 19:37 01/02/18 19:37 General appearance: no acute distress, alert Eyes: non-icteric ENT: oropharynx moist Neck: supple Effort: normal Ascultation: Bilateral: clear Percussion: Bilateral: not dull Tactile fremitus: Bilateral: normal Cardiovascular: regular rate and rhythm Gastrointestinal: normoactive bowel sounds, soft Results - Laboratory Findings CBC and BMP: 01/05/18 04:57 01/05/18 04:57 PT/INR, D-dimer PT 14.2 Sec. (12.2-14.9) 01/05/18 04:57 INR 1.05 (0.87-1.13) 01/05/18 04:57 D-Dimer < 135.00 ng/mlDDU (0-234) 01/04/18 13:02 Abnormal lab findings: Abnormal Labs 01/02/18 01/02/18 01/02/18 20:27 20:27 20:27 MCH 27 L Lymph % (Auto) [place] % (Auto) Seg Neutrophils % 72.7 H PT INR VBG pH 7.464 H Sodium 135 L Chloride 97.5 L BUN Creatinine Glucose 154 H Calcium Total Creatine Kinase NT-Pro-B Natriuret Pep 2211 H Total Protein 9.3 H Albumin 3.7 L Urine WBC (Auto) 01/02/18 01/03/18 01/04/18 Unknown 04:31 05:30 MCH 27 L Lymph % (Auto) 38.8 H [place] % (Auto) 8.3 H Seg Neutrophils % PT INR VBG pH Sodium Chloride BUN Creatinine Glucose Calcium Total Creatine Kinase NT-Pro-B Natriuret Pep 2267 H Total Protein Albumin Urine WBC (Auto) > 182.0 H 01/04/18 01/04/18 01/04/18 05:30 05:30 13:02 MCH Lymph % (Auto) [place] % (Auto) Seg Neutrophils % PT 15.4 H INR 1.16 H VBG pH Sodium 135 L Chloride 96.1 L BUN 18 H Creatinine Glucose 163 H Calcium Total Creatine Kinase 449 H NT-Pro-B Natriuret Pep Total Protein Albumin 3.3 L Urine WBC (Auto) 01/05/18 01/05/18 04:57 04:57 MCH 27 L Lymph % (Auto) [place] % (Auto) 9.2 H Seg Neutrophils % PT INR VBG pH Sodium Chloride 96.9 L BUN Creatinine 0.6 L Glucose 157 H Calcium 8.2 L Total Creatine Kinase NT-Pro-B Natriuret Pep Total Protein Albumin 3.3 L Urine WBC (Auto) - Diagnostic Findings CT scan - chest: image reviewed Assessment and Plan 57 y/o female with systolic heart failure, right sided heart failure secondary to left sided heart failure and type 2 pulmonary hypertension. 1. THis is not an acute pneumonitis. Patient states that the allergy to erythromycin was listed prior to the adminsitration of the abx. She is not wheezing and is currently on room air. She does not need steroids. 2. GGO's represent fluid most likely. Agree with continued diuresis 3. Patient wants to go home, will defer to cards and primary team. Will sign off.
[2018-01-05] MEDS: BABY ASPIRIN PO SCH (16:10)
[2018-01-05] MEDS: cefTRIAXone 1 GM in NACL 0.9% 20 ML IV SCH (16:11)
[2018-01-05] MEDS: ZESTRIL PO SCH (16:12)
[2018-01-05] MEDS: COREG PO SCH ×2 (16:12→21:35)
[2018-01-05] MEDS: ALDACTONE PO SCH (16:13)
--- NOTE | 2018-01-05 16:31 | Cardiac Catherization Report ---
LEFT AND RIGHT HEART CATHETERIZATION CLINICAL INFORMATION: A 57-year-old -[place] female with shortness of breath, on a Cardene with severe LV dysfunction, severe pulmonary hypertension, is here for left and right heart catheterization. Moderate sedation was done with 0.5 mg Versed and 25 mcg of fentanyl. Total sedation time was 30 minutes. Start sedation time 10:55, end time 11:25 a.m. DESCRIPTION OF PROCEDURE: Right heart catheterization was done via the right brachial vein. Sterile technique, local anesthesia, 6-German sheath inserted. Left heart catheterization was done via the right radial artery, sterile technique, local anesthesia, 6-German radial sheath inserted. Right heart catheterization findings showed a wedge of 22 mmHg; PA was 71/32, ; RV was 68/15 with RVEDP of 15 mmHg. RA was 13 mmHg. Saturations, PA sat was 55, RV sat was 55, RA sat was 55, and aortic sat was 88%. No step up or no step down Cardiac output was 4.36 and cardiac index was 2.45. Qp/Qs was 1 Left heart catheterization. Left system engaged with a JL3.5 catheter. Left main is large and patent. LAD is a large caliber vessel that is patent. Diagonal 1 is a medium caliber vessel that is patent. Circumflex is a large caliber vessel that is patent. Obtuse marginal 1 and 2 are medium caliber vessel, are patent. RCA is a large dominant vessel that is patent. PDA and PLV are medium caliber vessel and are patent. LV gram done in BRIAN and LIRIANO shows severe LV dysfunction, EF 20%. LVEDP of 24 mmHg, LV is 136/24. Aortic is 137/78. No gradient across the aortic valve on pullback. 5-German catheters were taken over guidewire. 6-German radial sheath in the brachial vein and the radial artery were discontinued and radial dressing applied. No hematoma, no bleeding. SUMMARY: Normal coronaries, severe LV dysfunction, nonischemic cardiomyopathy. LVEDP of 24 mmHg. Right heart catheterization shows severe pulmonary hypertension with wedge of 22 mmHg with an lvedp 24 mmHg. Cardiac output was 4.36. Cardiac index was 2.45. RV 68/15. PA was 71/32 and RA was 13 mmHg. The patient was treated medically for congestive heart failure. JOB# [id number] LYLE BOGGS
[2018-01-05] MEDS: LOVENOX SUB-Q SCH (21:36)
[2018-01-06] MEDS: LASIX PO SCH (06:07)
[2018-01-06 06:55] LABS: Basophils % (Auto) 0.8 % (0.0-1.8); Eosinophils # (Auto) 0.1 K/mm3 (0.0-0.4); Eosinophils % (Auto) 2.1 % (0.0-4.3); Hematocrit 38.2 % (30.3-42.9); Hemoglobin 12.3 gm/dl (10.1-14.3); Lymphocytes # (Auto) 1.8 K/mm3 (1.2-5.4); Lymphocytes % (Auto) 38.5 % (13.4-35.0); Mean Corpuscular HGB Conc 32 % (30-34); Mean Corpuscular Hemoglobin 27 pg (28-32); Mean Corpuscular Volume 83 fl (79-97); Monocytes # (Auto) 0.5 K/mm3 (0.0-0.8); Platelet Count 204 K/mm3 (140-440); Red Blood Count 4.63 M/mm3 (3.65-5.03); Red Cell Distribution Width 14.9 % (13.2-15.2)
[2018-01-06 07:23] LABS: Alanine Aminotransferase 15 units/L (7-56); Albumin 3.2 g/dL (3.9-5); BUN/Creatinine Ratio 22; Blood Urea Nitrogen 13 mg/dL (7-17); Calcium 8.1 mg/dL (8.4-10.2); Hemolysis Index 17
[2018-01-06] MEDS ORDERED: PROVENTIL IH PRN (10:00)
[2018-01-06] MEDS: BABY ASPIRIN PO SCH (10:03)
[2018-01-06] MEDS: ALDACTONE PO SCH (10:03)
[2018-01-06] MEDS: cefTRIAXone 1 GM in NACL 0.9% 20 ML IV SCH (10:03)
[2018-01-06] MEDS: COREG PO SCH (10:04)
[2018-01-06] MEDS: ZESTRIL PO SCH (10:04)
--- NOTE | 2018-01-06 10:59 | Discharge Summary ---
Providers - Providers Date of Admission: 01/03/18 06:55 Attending physician: ADA STEVENS MD 01/03/18 20:21 Consult to Physician [CONS] Routine Comment: Consulting Provider: EYAD MORENO Physician Instructions: Reason For Exam: combine systolic and diastolic heart failure, pHTN 01/05/18 09:15 Consult to Physician [CONS] Routine Comment: Consulting Provider: YOLANDA GALVEZ Physician Instructions: Reason For Exam: possible Pulm. fibrosis 01/05/18 11:32 Consult to Cardiac Rehabilitation [CONS] Routine Reason For Exam: Cardiac Rehab Evaluation Primary care physician: CHESS INSTRUCTOR Hospitalization Condition: Stable Time spent for discharge: 32 minutes - Discharge Diagnoses (1) Acute HFrEF (heart failure with reduced ejection fraction) Status: Acute (2) COPD (chronic obstructive pulmonary disease) Status: Acute (3) Cardiomyopathy Status: Acute (4) Hypoxia Status: Acute Core Measure Documentation - Palliative Care Palliative Care/ Comfort Measures: Not Applicable - Core Measures Any of the following diagnoses?: heart failure - Heart Failure Discharge Requirements MARTHA/ARB for LVSD if EF <40%: Yes Beta temo at discharge: Yes Exam - Constitutional Vitals: Temp Pulse Resp BP Pulse Ox 98.0 F 71 18 103/66 99 01/06/18 08:33 01/06/18 08:33 01/06/18 08:33 01/06/18 08:33 01/06/18 08:33 Plan Diet: low cholesterol, low salt, diabetic Additional Instructions: Please follow at [facility] in 1 week Follow up with: EYAD MORENO MD [Staff Physician] - 7 Days ([place] office, 01/13/2018 @ 9:45AM) PRIMARY CAREMD [Primary Care Provider] - 3-5 Days Prescriptions: ALBUTEROL NEB's [Proventil 0.083% NEBS] 2.5 mg IH TID PRN #60 neb PRN Reason: Wheezing Aspirin [Aspirin BABY CHEW TAB] 81 mg PO QDAY #30 tab.chew Carvedilol [Coreg] 6.25 mg PO BID #60 tablet Furosemide [Lasix TAB] 40 mg PO DAILY@0600 #30 tablet guaiFENesin [Robitussin] 200 mg PO Q4H PRN #1 oral.liqd PRN Reason: Cough Levofloxacin [Levaquin TAB] 500 mg PO QDAY #5 tablet Lisinopril [Zestril TAB] 10 mg PO QDAY #30 tablet Nebulizer and Compressor [[place] Choice Nebulizer] 1 each MC TID #1 each Spironolactone [Aldactone] 25 mg PO QDAY #30 tablet
--- NOTE | 2018-01-06 11:31 | Progress Note ---
Assessment and Plan Cardiac status appears stable. She will be discharged home to follow-up at my office in one week. - Patient Problems (1) Acute HFrEF (heart failure with reduced ejection fraction) Current Visit: Yes Status: Acute (2) NICM (nonischemic cardiomyopathy) Current Visit: Yes Status: Acute (3) Nonsustained ventricular tachycardia Current Visit: Yes Status: Acute (4) Moderate to severe pulmonary hypertension Current Visit: Yes Status: Acute (5) Hematemesis Current Visit: Yes Status: Acute Qualifiers: Nausea presence: with nausea Qualified Code(s): K92.0 - Hematemesis (6) Hemoptysis Current Visit: Yes Status: Acute (7) Hypertension Current Visit: Yes Status: Chronic Qualifiers: Hypertension type: essential hypertension Qualified Code(s): I10 - Essential (primary) hypertension (8) Diabetes mellitus Current Visit: Yes Status: Chronic Qualifiers: Diabetes mellitus type: type 2 Subjective Date of service: 01/06/18 Principal diagnosis: Acute HFrEF, NICMP, Severe pulm HTN, NSVT, HTN, DM Interval history: She feels fine. No complaints. Objective Vital Signs Last Vital Signs Temp 98.0 F 01/06/18 08:33 Pulse 66 01/06/18 10:20 Resp 18 01/06/18 10:20 BP 103/66 01/06/18 08:33 Pulse Ox 98 01/06/18 10:00 - Physical Examination General: No Apparent Distress HEENT: Positive: EOMI, Normocephaly, Mucus Membranes Moist Neck: Positive: neck supple, trachea midline Cardiac: Positive: Reg Rate and Rhythm, S1/S2 Lungs: Positive: clear to auscultation Neuro: Positive: Grossly Intact Abdomen: Positive: Soft, Active Bowel Sounds. Negative: Tender Skin: Positive: Clear. Negative: Rash Musculoskeletal: Normal Range of Motion Extremities: Present: normal. Absent: edema - Labs and Meds Cardiac Enzymes 01/06/18 Range/Units 04:55 AST 25 (5-40) units/L CBC 01/06/18 Range/Units 04:55 WBC 4.8 (4.5-11.0) K/mm3 RBC 4.63 (3.65-5.03) M/mm3 Hgb 12.3 (10.1-14.3) gm/dl Hct 38.2 (30.3-42.9) % Plt Count 204 (140-440) K/mm3 Lymph # 1.8 (1.2-5.4) K/mm3 Maury # 0.5 (0.0-0.8) K/mm3 Eos # 0.1 (0.0-0.4) K/mm3 Baso # 0.0 (0.0-0.1) K/mm3 Comprehensive Metabolic Panel 01/06/18 Range/Units 04:55 Sodium 139 (137-145) mmol/L Potassium 3.7 (3.6-5.0) mmol/L Chloride 100.3 (98-107) mmol/L Carbon Dioxide 26 (22-30) mmol/L BUN 13 (7-17) mg/dL Creatinine 0.6 L (0.7-1.2) mg/dL Glucose 185 H (65-100) mg/dL Calcium 8.1 L (8.4-10.2) mg/dL AST 25 (5-40) units/L ALT 15 (7-56) units/L Alkaline Phosphatase 104 (35-129) units/L Total Protein 7.9 (6.3-8.2) g/dL Albumin 3.2 L (3.9-5) g/dL - Imaging and Cardiology Cardiac cath: report reviewed (pulm htn and normal coronaries and severe lv dsyfunction ) - Telemetry EKG Rhythm: Sinus Rhythm - EKG Sinus rhythms and dysrhythmias: sinus tachycardia Ventricular dysrhythmias: non-sustained ventricular AV and intraventricular conduction: left anterior fascicular Myocardial infarction: septal LA (old age or ind
[2018-01-06 13:27] VITALS: BP 97/66
== END 2018-01-06 13:49 | disposition home or self-care (01) | DRG 286 ==
LOC: ED 19:11 → 4A 01-03 06:55
PROVIDERS: ADMIT Internal Medicine; ATTEND Internal Medicine
PROC: 4A023N8 Measurement of Cardiac Sampling and Pressure, Bilateral, Percutaneous Approach (ICD-10-PCS; principal; 2018-01-05)
PROC: B2111ZZ Fluoroscopy of Multiple Coronary Arteries using Low Osmolar Contrast (ICD-10-PCS; 2018-01-05)
PROC: B2151ZZ Fluoroscopy of Left Heart using Low Osmolar Contrast (ICD-10-PCS; 2018-01-05)
DX: I11.0 Hypertensive heart disease with heart failure (principal); J18.9 Pneumonia, unspecified organism; J96.01 Acute respiratory failure with hypoxia; I47.1 Supraventricular tachycardia; K92.0 Hematemesis; R04.2 Hemoptysis; N39.0 Urinary tract infection, site not specified; J44.0 Chronic obstructive pulmonary disease with (acute) lower respiratory infection; I50.43 Acute on chronic combined systolic (congestive) and diastolic (congestive) heart failure; I42.8 Other cardiomyopathies; I27.20 Pulmonary hypertension, unspecified; E11.9 Type 2 diabetes mellitus without complications; J44.9 Chronic obstructive pulmonary disease, unspecified
CPT/HCPCS: 36415; 71045; 71275; 80048; 80053; 81001; 82140; 82550; 82553; 82805; 83880; 84484; 85025; 85379; 85610; 86850; 86900; 86901; 87040; 87076; 87086; 87186; 93005; 93010; 93306; 93460; 94640; 94760; 96365; 96375; C1894; J0456; J0696; J1644; J1650; J1940; J1956; J2250; J3010; J7040; J7050; Q9967